=== PATIENT | female | born 1955 | race Caucasian/White ===

== ENCOUNTER 2017-01-05 10:38 | Day surgery (SDC) | payer OTHER ==
[~2017-01-05] VITALS: Ht 175.3 cm; Wt 64.0 kg
[~2017-01-05 10:38] MED LIST: WOMEN'S DAILY1 EAC4 PO
[2017-01-05 11:26] VITALS: BP 140/75
[2017-01-05 14:55] VITALS: BP 121/72
[2017-01-05 15:42] VITALS: BP 120/74
== END 2017-01-05 16:00 | disposition home or self-care (01) ==
LOC: SDC 10:38
DX: S83.241A Other tear of medial meniscus, current injury, right knee, initial encounter (principal); S83.281A Other tear of lateral meniscus, current injury, right knee, initial encounter; M17.11 Unilateral primary osteoarthritis, right knee; M94.261 Chondromalacia, right knee; X50.1XXA Overexertion from prolonged static or awkward postures, initial encounter; Y93.A9 Activity, other involving cardiorespiratory exercise; Z80.9 Family history of malignant neoplasm, unspecified
CPT/HCPCS: J0131; J0171; J0690; J1100; J2250; J3010